=== PATIENT | male | born 1950 | race Caucasian/White ===

== ENCOUNTER 2020-12-19 17:36 | Emergency (ER) | payer MEDICAID ==
[~2020-12-19] VITALS: Ht 170.2 cm; Wt 81.2 kg
[2020-12-19 17:41] VITALS: Ht 170.2 cm; Wt 81.2 kg
[2020-12-19 19:37] LABS: CALCIUM 9.2 mg/dL (8.5-10.1); CARBON DIOXIDE 28.2 mmol/L (21-32); CHLORIDE SERUM 100 mmol/L (98-107); CREATININE SERUM 1.1 mg/dL (0.7-1.3); GFR1 > 60 mL/min; GLUCOSE SERUM 115 mg/dL (74-106); SODIUM SERUM 135 mmol/L (136-145)
[2020-12-19 19:39] LABS: BASOPHIL % 0.6 % (0.2-1.5); PLATELET COUNT 318 x10^3mcL (152-348); RED CELL DISTRIBUTION WIDTH 13.5 % (12.1-16.2)
[2020-12-19 19:42] LABS: ALBUMIN 4.1 g/dL (3.4-5.0); ALKALINE PHOSPHATASE 80 U/L (46-116); ALT/SGPT 41 U/L (16-63); AST/SGOT 35 U/L (15-37)
[2020-12-19] MEDS ORDERED: PRILOSEC OTC20 M1 PO (22:27)
[2020-12-19] MEDS ORDERED: ONDANSETRON4 M3 PO (22:27)
[2020-12-19 23:13] VITALS: BP 133/79
== END 2020-12-19 23:13 | disposition home or self-care (01) ==
LOC: ED 17:36
PROVIDERS: Emergency Medicine
DX: K21.9 Gastro-esophageal reflux disease without esophagitis (principal); I10 Essential (primary) hypertension; E03.9 Hypothyroidism, unspecified; Z90.49 Acquired absence of other specified parts of digestive tract